=== PATIENT | male | born 1940 | race Caucasian/White ===

== ENCOUNTER 2020-02-28 06:56 | Emergency (ER) | payer MEDICARE ==
[~2020-02-28] VITALS: Ht 175.3 cm; Wt 90.7 kg
[2020-02-28 07:25] VITALS: BP 154/85
[2020-02-28] MEDS ORDERED: KETOROLAC TROMETH 60MG/2ML VIAL IM ONE (08:00)
== END 2020-02-28 08:43 | disposition home or self-care (01) ==
LOC: ER 06:56
DX: S16.1XXA Strain of muscle, fascia and tendon at neck level, initial encounter (principal); M50.30 Other cervical disc degeneration, unspecified cervical region; E11.9 Type 2 diabetes mellitus without complications; K21.9 Gastro-esophageal reflux disease without esophagitis; M10.9 Gout, unspecified; I10 Essential (primary) hypertension; E07.9 Disorder of thyroid, unspecified; X58.XXXA Exposure to other specified factors, initial encounter; Y93.89 Activity, other specified; Y92.89 Other specified places as the place of occurrence of the external cause; Y99.8 Other external cause status
CPT/HCPCS: 72040; 96372; 99283; J1885

== ENCOUNTER 2023-08-28 05:37 | Emergency (ER) | payer MEDICARE ==
[~2023-08-28] VITALS: Ht 177.8 cm; Wt 84.5 kg
[2023-08-28 05:52] VITALS: TEMP 97.9
[2023-08-28 07:10] VITALS: O2SAT 94
[2023-08-28] MEDS: MORPHINE SULFATE INJ 2 MG/ml SYRG IM ONE (07:31)
[2023-08-28] MEDS: ONDANSETRON ODT 4 MG TAB PO ONE (07:32)
[2023-08-28 07:52] LABS: Basophils # (auto) 0.1 10 ^3/uL (0-0.2); Basophils % (auto) 0.4 % (0.0-2.0); Eosinophils # (auto) 0 10 ^3/uL (0-0.8); Hematocrit 38.4 % (41.0-53.0); Hemoglobin 12.4 g/dL (13.5-17.5); Lymphocytes # (auto) 0.9 10 ^3/uL (0.4-5.4); Lymphocytes % (auto) 5.9 % (10.0-50.0); Mean Corpuscular Hemoglobin 31.4 pg (28.0-32.0); Mean Corpuscular Hgb Conc. 32.3 g/dL (32.0-36.0); Mean Corpuscular Volume 97.2 fL (80.0-100.0); Monocytes # (auto) 1.8 10 ^3/uL (0-1.3); Monocytes % (auto) 11.4 % (0.0-12.0); Neutrophils # (auto) 12.9 10 ^3/uL (1.6-8.6); Neutrophils % (auto) 82.3 % (37.0-80.0); Red Blood Cells 3.95 10^6/uL (4.5-5.90); Red Cell Distribution Width 14.4 % (11.8-14.3); White Blood Cell 15.7 10^3/uL (4.4-10.8)
[2023-08-28 08:05] VITALS: BP 134/83; PULSE 114; RESP 18
[2023-08-28 08:21] LABS: Alanine Aminotransferase 13 U/L (7-40); Albumin 4.6 g/dL (3.2-4.8); Alkaline Phosphatase 67 U/L (46-116); Anion Gap 7 (5-15); Aspartate Aminotransferase 17 U/L (13-40); BUN/Creatinine Ratio 12.4 (10.0-20.0); Blood Urea Nitrogen 11 mg/dL (9-23); Calcium 9.5 mg/dL (8.5-10.1); Carbon Dioxide 27 mmol/L (20-30); Chloride 100 mmol/L (98-107); Glucose 162 mg/dL (74-106); Sodium 134 mmol/L (136-145); Total Protein 7.3 g/dL (5.7-8.2)
[2023-08-28 09:25] LABS: Urine Bacteria FEW /hpf (None Seen); Urine Blood 2+ /uL (Negative); Urine Clarity Clear (Clear); Urine Color Yellow (Yellow); Urine Mucus FEW (None Seen); Urine Protein, UAD 2+ (Negative); Urine Specific Gravity 1.023 (1.001-1.035); Urine WBC 4 /hpf (0 - 3); Urine pH 6.5 (5.0-8.0)
[2023-08-28] MEDS ORDERED: TRAM50TA2 PO (09:36)
[2023-08-28] MEDS ORDERED: DexAMETHasone SOD PHOS 10MG/1ML VIAL INJ IM ONE (09:45)
== END 2023-08-28 09:55 | disposition home or self-care (01) ==
LOC: ER 05:37
DX: M62.838 Other muscle spasm (principal); M50.30 Other cervical disc degeneration, unspecified cervical region; I10 Essential (primary) hypertension; E11.9 Type 2 diabetes mellitus without complications; K21.9 Gastro-esophageal reflux disease without esophagitis; E03.9 Hypothyroidism, unspecified; M10.9 Gout, unspecified; Z90.49 Acquired absence of other specified parts of digestive tract; Z79.899 Other long term (current) drug therapy
CPT/HCPCS: 36415; 72125; 80053; 81001; 83605; 85025; 87040; 96372; 99285; J2270; Q0162

== ENCOUNTER 2023-08-29 18:41 | Inpatient (IN) | payer MEDICARE ==
[~2023-08-29] VITALS: Ht 177.8 cm; Wt 83.5 kg
[~2023-08-29 18:41] MED LIST: TRAM50TA2 PO
[2023-08-29 19:59] LABS: Basophils # (auto) 0 10 ^3/uL (0-0.2); Basophils % (auto) 0.2 % (0.0-2.0); Eosinophils # (auto) 0 10 ^3/uL (0-0.8); Eosinophils % (auto) 0.1 % (0.0-7.0); Hematocrit 37.5 % (41.0-53.0); Hemoglobin 12.2 g/dL (13.5-17.5); Lymphocytes # (auto) 1.7 10 ^3/uL (0.4-5.4); Lymphocytes % (auto) 14.2 % (10.0-50.0); Mean Corpuscular Hemoglobin 31.9 pg (28.0-32.0); Mean Corpuscular Hgb Conc. 32.6 g/dL (32.0-36.0); Mean Corpuscular Volume 97.7 fL (80.0-100.0); Monocytes # (auto) 1.8 10 ^3/uL (0-1.3); Monocytes % (auto) 15.2 % (0.0-12.0); Neutrophils # (auto) 8.5 10 ^3/uL (1.6-8.6); Neutrophils % (auto) 70.3 % (37.0-80.0); Nucleated Red Blood Cells % 0.1 %; Red Blood Cells 3.83 10^6/uL (4.5-5.90); Red Cell Distribution Width 14.3 % (11.8-14.3); White Blood Cell 12.1 10^3/uL (4.4-10.8)
[2023-08-29 20:09] LABS: Chloride 98 mmol/L (98-107); Potassium 4.4 mmol/L (3.5-5.1); Sodium 135 mmol/L (136-145)
[2023-08-29 20:10] LABS: Anion Gap 8 (5-15); Carbon Dioxide 29 mmol/L (20-30)
[2023-08-29 20:11] LABS: Calcium 9.5 mg/dL (8.5-10.1)
[2023-08-29 20:15] LABS: Glucose 136 mg/dL (74-106)
[2023-08-29 20:20] LABS: BUN/Creatinine Ratio 17.7 (10.0-20.0); Blood Urea Nitrogen 20 mg/dL (9-23)
[2023-08-29] MEDS: cefTRIAXone 1GM/50ML D5W 50 ML IV ONE (20:24)
[2023-08-29] MEDS: AZITHROMYCIN 250 MG TAB PO ONE (20:25)
[2023-08-29] MEDS: MORPHINE SULFATE 4 MG/ML SYR/VIAL IV ONE (20:28)
[2023-08-29 20:46] LABS: COVID19 ANTIGEN SOFIA FIA NEGATIVE (NEGATIVE); Rapid Influenza A Negative (Negative); Rapid Influenza B Negative (Negative)
[2023-08-29] MEDS: ASPirin 325 MG TAB PO ONE (20:49)
[2023-08-29] MEDS ORDERED: DEXTROSE (50%) 50ML SYRG IV PRN (21:15)
[2023-08-29] MEDS ORDERED: ONDANSETRON HCL 4 MG/2 ML VIAL IV PRN (21:15)
[2023-08-29] MEDS ORDERED: ALBUTEROL SULF 2.5 MG/0.5ML(0.5%) NEB SOLN NEB PRN (21:15)
[2023-08-29] MEDS ORDERED: MORPHINE SULFATE INJ 2 MG/ml SYRG IV PRN (21:15)
[2023-08-29] MEDS ORDERED: NITROGLYCERIN 0.4 MG SL TAB SL PRN (21:15)
[2023-08-30] MEDS: InsuLIN REG 1unit/0.01ml Soln (100units/ml) SC SCH (00:17)
[2023-08-30] MEDS: ACCU-CHEK COMFORT CURVE STRIP VI SCH (00:17)
[2023-08-30] MEDS: ATORVASTATIN 20 MG TAB PO SCH (00:25)
[2023-08-30] MEDS: HYDROcodone-ACET 5/325MG TAB PO PRN (00:38)
[2023-08-30 02:08] VITALS: BP 144/66; PULSE 103; RESP 14; TEMP 97.8; O2SAT 92
[2023-08-30 07:06] LABS: Calcium 9.4 mg/dL (8.5-10.1); Chloride 97 mmol/L (98-107); Potassium 4.2 mmol/L (3.5-5.1); Sodium 134 mmol/L (136-145)
[2023-08-30 07:07] LABS: Anion Gap 7 (5-15); Carbon Dioxide 30 mmol/L (20-30)
[2023-08-30 07:12] LABS: Blood Urea Nitrogen 27 mg/dL (9-23); Glucose 112 mg/dL (74-106)
[2023-08-30 07:20] LABS: Basophils # (auto) 0 10 ^3/uL (0-0.2); Basophils % (auto) 0.1 % (0.0-2.0); Eosinophils # (auto) 0 10 ^3/uL (0-0.8); Eosinophils % (auto) 0.1 % (0.0-7.0); Hematocrit 32.6 % (41.0-53.0); Hemoglobin 10.7 g/dL (13.5-17.5); Lymphocytes # (auto) 1.8 10 ^3/uL (0.4-5.4); Lymphocytes % (auto) 14.7 % (10.0-50.0); Mean Corpuscular Hgb Conc. 32.8 g/dL (32.0-36.0); Mean Corpuscular Volume 97.8 fL (80.0-100.0); Monocytes % (auto) 15.8 % (0.0-12.0); Neutrophils # (auto) 8.7 10 ^3/uL (1.6-8.6); Neutrophils % (auto) 69.3 % (37.0-80.0); Nucleated Red Blood Cells % 0.1 %; Red Blood Cells 3.33 10^6/uL (4.5-5.90); Red Cell Distribution Width 14.1 % (11.8-14.3); White Blood Cell 12.6 10^3/uL (4.4-10.8)
[2023-08-30] MEDS: cefTRIAXone 1GM/50ML D5W 50 ML IV SCH (09:11)
[2023-08-30 09:26] VITALS: O2SAT 93
[2023-08-30] MEDS: AZITHROMYCIN 500MG/ 250ML 250 ML IV SCH (09:29)
[2023-08-30] MEDS: FELODIPINE 10 MG PO SCH (10:00)
[2023-08-30] MEDS: ENOXAPARIN SOD 40 MG/0.4 ML SYRINGE SC SCH (10:06)
[2023-08-30] MEDS: ALLOPURINOL 100 MG TAB PO SCH (10:07)
[2023-08-30] MEDS: ASPirin 81 mg TAB PO SCH (10:07)
[2023-08-30] MEDS: LISINOPRIL 20 MG TAB PO SCH (10:07)
[2023-08-30 13:00] VITALS: O2SAT 94
[2023-08-30] MEDS: SODIUM CHLORIDE 0.9% 1,000 ML IV ONE (14:30)
[2023-08-30] MEDS ORDERED: DOCUSATE SOD 100 MG CAP PO PRN (15:00)
[2023-08-30 19:38] VITALS: PULSE 106; RESP 20; O2SAT 96
[2023-08-30] MEDS: LEVALBUTEROL HCL 1.25 MG/3 ML NEB NEB SCH (19:38)
[2023-08-30] MEDS: IPRATROPIUM BROM 0.5 MG/2.5ML INH SOL NEB SCH (19:38)
[2023-08-30 19:44] VITALS: PULSE 102; RESP 18; O2SAT 98
[2023-08-30] MEDS: HALOPERIDOL LACTATE 5 MG/ML INJ VIAL ONE (21:24)
[2023-08-30] MEDS: HALOPERIDOL LACTATE 5 MG/ML INJ VIAL IM ONE (21:33)
[2023-08-30] MEDS: BUDESONIDE (INHALATION) 0.5 MG/2 ML NEB NEB SCH (22:00)
[2023-08-30] MEDS: LORazepam 2MG/ML-1ML VIAL IM ONE (23:15)
[2023-08-31] VITALS (8 sets, daily range): PULSE 103–126; RESP 20–27; O2SAT 93–100
[2023-08-31 06:09] LABS: Basophils # (auto) 0 10 ^3/uL (0-0.2); Basophils % (auto) 0.1 % (0.0-2.0); Eosinophils # (auto) 0 10 ^3/uL (0-0.8); Hematocrit 34.8 % (41.0-53.0); Hemoglobin 11.5 g/dL (13.5-17.5); Lymphocytes # (auto) 1.7 10 ^3/uL (0.4-5.4); Lymphocytes % (auto) 14.2 % (10.0-50.0); Mean Corpuscular Hemoglobin 31.9 pg (28.0-32.0); Mean Corpuscular Hgb Conc. 33.1 g/dL (32.0-36.0); Mean Corpuscular Volume 96.5 fL (80.0-100.0); Monocytes # (auto) 1.9 10 ^3/uL (0-1.3); Monocytes % (auto) 15.8 % (0.0-12.0); Neutrophils # (auto) 8.5 10 ^3/uL (1.6-8.6); Neutrophils % (auto) 69.9 % (37.0-80.0); White Blood Cell 12.1 10^3/uL (4.4-10.8)
[2023-08-31 06:18] LABS: Chloride 97 mmol/L (98-107); Potassium 3.8 mmol/L (3.5-5.1); Sodium 135 mmol/L (136-145)
[2023-08-31 06:19] LABS: Anion Gap 11 (5-15); Calcium 9.8 mg/dL (8.5-10.1); Carbon Dioxide 27 mmol/L (20-30)
[2023-08-31 06:24] LABS: BUN/Creatinine Ratio 18.8 (10.0-20.0); Blood Urea Nitrogen 18 mg/dL (9-23); Glucose 122 mg/dL (74-106)
[2023-08-31] MEDS: LORazepam 2MG/ML-1ML VIAL IM ONE (07:15)
[2023-08-31] MEDS ORDERED: ALLO300T2 PO (08:11)
[2023-08-31] MEDS ORDERED: GABA-1308 PO (08:11)
[2023-08-31] MEDS ORDERED: LISI20TA56 PO (08:11)
[2023-08-31] MEDS ORDERED: OMEP20TA PO (08:11)
[2023-08-31] MEDS ORDERED: SIMV40TA18 PO (08:11)
[2023-08-31] MEDS ORDERED: FELO10TA28 PO (08:11)
[2023-08-31] MEDS ORDERED: LEVO50TA7 PO (08:11)
[2023-08-31] MEDS: METOPROLOL TARTRATE 25 MG TAB PO SCH (14:00)
[2023-08-31] MEDS: LORazepam 2MG/ML-1ML VIAL IV ONE (14:15)
[2023-08-31 14:50] LABS: Base Excess 2.1 mmol/L (-2.0-2.0)
[2023-08-31 14:52] LABS: Erythrocyte Sedimentation Rate 91 mm/hr (0-20)
[2023-08-31] MEDS: D5W/SOD CHLO 0.9% 1,000 ML IV SCH (15:15)
[2023-08-31] MEDS: METOPROLOL TARTRATE 1MG/1ML-5ML VIAL IV ONE (16:45)
[2023-08-31] MEDS: NutriHep RTU 240 mL Unflavored PO SCH (18:00)
[2023-08-31 18:20] LABS: Basophils # (auto) 0 10 ^3/uL (0-0.2); Basophils % (auto) 0.1 % (0.0-2.0); Eosinophils # (auto) 0 10 ^3/uL (0-0.8); Eosinophils % (auto) 0.1 % (0.0-7.0); Hematocrit 34.8 % (41.0-53.0); Hemoglobin 11.5 g/dL (13.5-17.5); Lymphocytes # (auto) 1.3 10 ^3/uL (0.4-5.4); Lymphocytes % (auto) 12.6 % (10.0-50.0); Mean Corpuscular Hgb Conc. 33.1 g/dL (32.0-36.0); Mean Corpuscular Volume 96.7 fL (80.0-100.0); Monocytes # (auto) 1.8 10 ^3/uL (0-1.3); Monocytes % (auto) 17.2 % (0.0-12.0); Neutrophils # (auto) 7.5 10 ^3/uL (1.6-8.6); Red Cell Distribution Width 14.1 % (11.8-14.3); White Blood Cell 10.7 10^3/uL (4.4-10.8)
[2023-08-31] MEDS: Glucerna Carbsteady SHAKE Vanilla 8oz PO SCH (18:23)
[2023-08-31] MEDS: MEROPENEM 1GM IVPB 50 ML IV SCH (19:21)
[2023-08-31] MEDS: ACETAMINOPHEN 650 MG RECT SUPP PR ONE (21:35)
[2023-08-31] MEDS: ACETAMINOPHEN 650 MG RECT SUPP PR PRN (21:36)
[2023-08-31] MEDS ORDERED: LINEZOLID 600MG/300ML 300 ML IV SCH (22:00)
[2023-09-01] VITALS (16 sets, daily range): BP systolic 119–179; BP diastolic 70–86; PULSE 72–114; RESP 16–20; TEMP 97.5–98.1; O2SAT 90–100
[2023-09-01] MEDS: LINEZOLID 600MG/300ML 300 ML IV SCH (02:29)
[2023-09-01 06:52] LABS: Basophils # (auto) 0 10 ^3/uL (0-0.2); Eosinophils # (auto) 0 10 ^3/uL (0-0.8); Hematocrit 35.9 % (41.0-53.0); Lymphocytes # (auto) 0.4 10 ^3/uL (0.4-5.4); Lymphocytes % (auto) 4.3 % (10.0-50.0); Mean Corpuscular Hemoglobin 32.5 pg (28.0-32.0); Mean Corpuscular Hgb Conc. 33.6 g/dL (32.0-36.0); Mean Corpuscular Volume 96.8 fL (80.0-100.0); Monocytes # (auto) 0.6 10 ^3/uL (0-1.3); Monocytes % (auto) 6.2 % (0.0-12.0); Neutrophils # (auto) 8.8 10 ^3/uL (1.6-8.6); Neutrophils % (auto) 89.5 % (37.0-80.0); Red Blood Cells 3.71 10^6/uL (4.5-5.90); Red Cell Distribution Width 13.9 % (11.8-14.3); White Blood Cell 9.8 10^3/uL (4.4-10.8)
[2023-09-01 07:29] LABS: Anion Gap 9 (5-15); Carbon Dioxide 27 mmol/L (20-30); Chloride 96 mmol/L (98-107); Potassium 3.7 mmol/L (3.5-5.1); Sodium 132 mmol/L (136-145)
[2023-09-01 07:30] LABS: Calcium 9.7 mg/dL (8.5-10.1)
[2023-09-01 07:35] LABS: BUN/Creatinine Ratio 17.1 (10.0-20.0); Blood Urea Nitrogen 14 mg/dL (9-23); Glucose 188 mg/dL (74-106)
[2023-09-01 08:13] LABS: Base Excess 2.6 mmol/L (-2.0-2.0)
[2023-09-01] MEDS ORDERED: METF-370 PO (09:34)
[2023-09-01] MEDS: HYDROcodone-ACET 5/325MG TAB PO PRN (21:47)
[2023-09-02] VITALS (20 sets, daily range): BP systolic 110–160; BP diastolic 77–96; PULSE 66–102; RESP 16–97; TEMP 97.4–98.6; O2SAT 91–99
[2023-09-02] MEDS: ACETAMINOPHEN 325 MG TAB PO PRN (02:23)
[2023-09-02 05:10] LABS: Chloride 98 mmol/L (98-107); Sodium 133 mmol/L (136-145)
[2023-09-02 05:11] LABS: Anion Gap 7 (5-15); Carbon Dioxide 28 mmol/L (20-30)
[2023-09-02 05:12] LABS: Basophils # (auto) 0 10 ^3/uL (0-0.2); Basophils % (auto) 0.2 % (0.0-2.0); Calcium 9.8 mg/dL (8.7-10.4); Eosinophils # (auto) 0 10 ^3/uL (0-0.8); Eosinophils % (auto) 0.2 % (0.0-7.0); Hematocrit 34.2 % (41.0-53.0); Hemoglobin 11.4 g/dL (13.5-17.5); Lymphocytes # (auto) 1.9 10 ^3/uL (0.4-5.4); Mean Corpuscular Hemoglobin 32.2 pg (28.0-32.0); Mean Corpuscular Hgb Conc. 33.3 g/dL (32.0-36.0); Mean Corpuscular Volume 96.6 fL (80.0-100.0); Monocytes # (auto) 1.5 10 ^3/uL (0-1.3); Monocytes % (auto) 12.6 % (0.0-12.0); Neutrophils # (auto) 8.5 10 ^3/uL (1.6-8.6); Nucleated Red Blood Cells % 0.1 %; Red Blood Cells 3.54 10^6/uL (4.5-5.90); Red Cell Distribution Width 14.1 % (11.8-14.3)
[2023-09-02 05:16] LABS: Glucose 115 mg/dL (74-106)
[2023-09-02 05:17] LABS: BUN/Creatinine Ratio 25.3 (10.0-20.0); Blood Urea Nitrogen 21 mg/dL (9-23); Magnesium 1.8 mg/dL (1.6-2.6)
[2023-09-02] MEDS: LINEZOLID 600MG/300ML 300 ML IV SCH (05:54)
[2023-09-02] MEDS ORDERED: MEROPENEM 1GM IVPB 50 ML IV SCH (08:00)
[2023-09-02] MEDS: ASPirin 81 mg TAB PO SCH (08:44)
[2023-09-02] MEDS: DOXYCYCLINE 100 MG TAB/CAP PO SCH (08:45)
[2023-09-02] MEDS: LIDOCAINE 5% TOPICAL PATCH TOP SCH (08:46)
[2023-09-02] MEDS: cefTRIAXone 1GM/50ML D5W 50 ML IV SCH (08:58)
[2023-09-02] MEDS: MORPHINE SULFATE INJ 2 MG/ml SYRG IV PRN (12:24)
[2023-09-02] MEDS: ONDANSETRON HCL 4 MG/2 ML VIAL IV PRN (16:48)
[2023-09-03] VITALS (21 sets, daily range): BP systolic 125–160; BP diastolic 78–89; PULSE 70–109; RESP 16–22; TEMP 97.7–98.1; O2SAT 93–99
[2023-09-03 05:17] LABS: Basophils # (auto) 0 10 ^3/uL (0-0.2); Basophils % (auto) 0.2 % (0.0-2.0); Eosinophils # (auto) 0.2 10 ^3/uL (0-0.8); Eosinophils % (auto) 2.2 % (0.0-7.0); Hematocrit 36.7 % (41.0-53.0); Hemoglobin 11.9 g/dL (13.5-17.5); Lymphocytes # (auto) 1.8 10 ^3/uL (0.4-5.4); Lymphocytes % (auto) 19.9 % (10.0-50.0); Mean Corpuscular Hemoglobin 31.4 pg (28.0-32.0); Mean Corpuscular Hgb Conc. 32.5 g/dL (32.0-36.0); Mean Corpuscular Volume 96.7 fL (80.0-100.0); Monocytes # (auto) 1.2 10 ^3/uL (0-1.3); Monocytes % (auto) 13.8 % (0.0-12.0); Neutrophils # (auto) 5.8 10 ^3/uL (1.6-8.6); Neutrophils % (auto) 63.9 % (37.0-80.0)
[2023-09-03 05:31] LABS: Anion Gap 3 (5-15); Carbon Dioxide 31 mmol/L (20-30); Chloride 101 mmol/L (98-107); Potassium 4.3 mmol/L (3.5-5.1); Sodium 135 mmol/L (136-145)
[2023-09-03 05:32] LABS: Calcium 9.5 mg/dL (8.7-10.4)
[2023-09-03 05:37] LABS: BUN/Creatinine Ratio 25.3 (10.0-20.0); Blood Urea Nitrogen 19 mg/dL (9-23); Glucose 108 mg/dL (74-106)
[2023-09-03] MEDS: MORPHINE SULFATE INJ 2 MG/ml SYRG IV PRN (09:45)
[2023-09-03] MEDS ORDERED: POLYETHYLENE GLYCOL 17 GM PWDR PO PRN (15:30)
[2023-09-03] MEDS ORDERED: LACTULOSE 20Gm/30ML SOLN PO SCH (22:00)
[2023-09-04] VITALS (20 sets, daily range): BP systolic 117–147; BP diastolic 70–87; PULSE 71–109; RESP 16–18; TEMP 97.7–98.3; O2SAT 86–99
[2023-09-04] MEDS ORDERED: ASPI-325 PO (17:51)
[2023-09-04] MEDS ORDERED: ATOR40TA52 PO (17:51)
[2023-09-04] MEDS ORDERED: AZIT-43 PO (17:51)
[2023-09-05] VITALS (18 sets, daily range): BP systolic 116–146; BP diastolic 63–89; PULSE 66–90; RESP 16–18; TEMP 97.4–98.8; O2SAT 92–96
[2023-09-05 09:53] LABS: Base Excess 2.5 mmol/L (-2.0-2.0)
[2023-09-05] MEDS ORDERED: DOXY-448 PO (12:51)
[2023-09-05] MEDS ORDERED: LIDO5DIS21 TOP (13:35)
[2023-09-05] MEDS ORDERED: TRAM50TA2 PO (14:56)
[2023-09-06] VITALS (12 sets, daily range): BP systolic 93–140; BP diastolic 60–86; PULSE 69–98; RESP 16–19; TEMP 97.2–98.1; O2SAT 92–99
== END 2023-09-06 18:30 | disposition home or self-care (01) | DRG 871 ==
LOC: ER 18:41 → EDBD 18:41 → TELE 21:16 → TELE-WESTW 09-01 04:15 → WEST WING 09-02 23:48
PROVIDERS: ADMIT Nurse Practitioner; ATTEND Nurse Practitioner Acute Care
DX: A41.9 Sepsis, unspecified organism (principal); G93.41 Metabolic encephalopathy; J15.69 Pneumonia due to other Gram-negative bacteria; I21.A1 Myocardial infarction type 2; J96.01 Acute respiratory failure with hypoxia; N17.0 Acute kidney failure with tubular necrosis; J15.9 Unspecified bacterial pneumonia; G89.29 Other chronic pain; I10 Essential (primary) hypertension; E11.9 Type 2 diabetes mellitus without complications; Z20.822 Contact with and (suspected) exposure to COVID-19; F17.210 Nicotine dependence, cigarettes, uncomplicated; M47.812 Spondylosis without myelopathy or radiculopathy, cervical region; K21.9 Gastro-esophageal reflux disease without esophagitis; M10.9 Gout, unspecified; Z90.49 Acquired absence of other specified parts of digestive tract; Z79.51 Long term (current) use of inhaled steroids
CPT/HCPCS: 36415; 36600; 70450; 71045; 71250; 78582; 80048; 82140; 82805; 82962; 83036; 83605; 83735; 83880; 84443; 84484; 85025; 85379; 85652; 86141; 87040; 87086; 87426; 87804; 93005; 93306; 93970; 94640; 97110; 97116; 97163; 99291; G0378; J1815; J2185; J2405